=== PATIENT | male | born 1985 | race Caucasian/White ===

== ENCOUNTER 2021-05-19 11:19 | Inpatient (IN) | payer OTHER ==
[2021-05-19 11:48] VITALS: BMI 22.1
[2021-05-19] MEDS ORDERED: ACETAMINOPHEN 325 MG TABLET (FP) PO PRN (13:08)
[2021-05-19] MEDS ORDERED: MAG HYDROX/AL HYDROX/SIMETH 30 ML UNIT-DOSE CUP PO PRN (13:08)
[2021-05-19] MEDS ORDERED: BISMUTH SUBSALICYLATE 524 MG/30 ML PO PRN (13:08)
[2021-05-19] MEDS ORDERED: MAGNESIUM HYDROX 2400MG/30ML ORAL SUSPENSION 30 ML CUP PO PRN (13:08)
[2021-05-19] MEDS ORDERED: MENTHOL/PHENOL 1 EACH UD MM PRN (13:08)
[2021-05-19] MEDS ORDERED: cloNIDine HCL 0.1 MG TABLET PO PRN (13:08)
[2021-05-19] MEDS ORDERED: MAGNESIUM CITRATE 300 ML BOTTLE PO PRN (13:08)
[2021-05-19] MEDS ORDERED: ONDANSETRON *ODT* 4 MG TABLET SL PRN (13:08)
[2021-05-19] MEDS ORDERED: methaDONE HCL 10 MG TABLET (FOR DETOX USE ONLY) PO ONE (13:08)
[2021-05-19] MEDS ORDERED: IBUPROFEN 400 MG TABLET (FP) PO PRN (13:08)
[2021-05-19] MEDS: METHOCARBAMOL 500 MG TABLET PO PRN ×2 (14:05→22:30)
[2021-05-19] MEDS: hydrOXYzine PAMOATE 25 MG CAPSULE (FP) PO SCH ×3 (14:05→22:29)
[2021-05-19] MEDS: PRENATAL VITAMINS W/ FOLIC ACID TABLET (FP) PO SCH (14:07)
[2021-05-19] MEDS: clonazePAM 0.5 MG ODT TABLETS SL PRN (18:01)
[2021-05-19] MEDS: THIAMINE HCL 100 MG TABLET (FP) PO SCH (22:29)
[2021-05-19] MEDS: MELATONIN 5 MG TABLETS PO SCH (22:29)
[2021-05-20] MEDS: hydrOXYzine PAMOATE 25 MG CAPSULE (FP) PO SCH ×5 (05:43→22:08)
[2021-05-20] MEDS ORDERED: methaDONE HCL 10 MG TABLET (FOR DETOX USE ONLY) ONE (09:03)
[2021-05-20] MEDS: PRENATAL VITAMINS W/ FOLIC ACID TABLET (FP) PO SCH (10:22)
[2021-05-20] MEDS: clonazePAM 0.5 MG ODT TABLETS SL PRN ×2 (10:23→22:08)
[2021-05-20 13:13] LABS: HEMOGLOBIN 14.1 GM/dL (11.7-16.9); MCH 30.2 pg (25.7-33.7); MCHC 34.3 g/dl (32.0-35.9); MEAN CELL VOLUME 87.8 fl (80-96); MEAN PLT VOLUME 10.4 fl (7.5-11.1); PLATELET COUNT 183 10^3/uL (134-434); RBC 4.66 M/mm3 (4.00-5.60); RDW 13.2 % (11.9-15.9); WHITE BLOOD COUNT 8.6 K/mm3 (4.0-10.0)
[2021-05-20 13:16] LABS: ALBUMIN 3.9 g/dl (3.4-5.0); CALCIUM 9.4 mg/dL (8.5-10.1)
[2021-05-20 13:17] LABS: BILIRUBIN,TOTAL 0.8 mg/dL (0.2-1); BLOOD UREA NITROGEN 18.8 mg/dL (7-18); TOT PROT 6.9 g/dl (6.4-8.2)
[2021-05-20 13:20] LABS: CREATININE 0.8 mg/dL (0.55-1.3)
[2021-05-20] MEDS: THIAMINE HCL 100 MG TABLET (FP) PO SCH (22:08)
[2021-05-20] MEDS: MELATONIN 5 MG TABLETS PO SCH (22:08)
[2021-05-21] MEDS: METHOCARBAMOL 500 MG TABLET PO PRN (05:59)
[2021-05-21] MEDS: hydrOXYzine PAMOATE 25 MG CAPSULE (FP) PO SCH (06:00)
[2021-05-21] MEDS: NICOTINE 10 MG CARTRIDGE (INHALER) IH PRN ×2 (06:30→10:22)
[2021-05-21] MEDS ORDERED: methaDONE HCL 10 MG TABLET (FOR DETOX USE ONLY) PO ONE (10:00)
[2021-05-21] MEDS: PRENATAL VITAMINS W/ FOLIC ACID TABLET (FP) PO SCH (10:19)
[2021-05-21] MEDS: diazePAM 5 MG TABLET PO PRN ×4 (10:20→23:01)
[2021-05-21] MEDS: ACETAMINOPHEN 325 MG TABLET (FP) PO PRN (19:08)
[2021-05-21] MEDS: MELATONIN 5 MG TABLETS PO SCH (22:19)
[2021-05-21] MEDS: THIAMINE HCL 100 MG TABLET (FP) PO SCH (22:19)
[2021-05-22] MEDS: hydrOXYzine PAMOATE 25 MG CAPSULE (FP) PO PRN ×2 (00:31→22:11)
[2021-05-22] MEDS: METHOCARBAMOL 500 MG TABLET PO PRN ×2 (02:15→22:11)
[2021-05-22] MEDS: ACETAMINOPHEN 325 MG TABLET (FP) PO PRN (02:15)
[2021-05-22] MEDS: diazePAM 5 MG TABLET PO PRN ×4 (03:04→22:10)
[2021-05-22] MEDS ORDERED: methaDONE HCL 10 MG TABLET (FOR DETOX USE ONLY) ONE (08:27)
[2021-05-22] MEDS: PRENATAL VITAMINS W/ FOLIC ACID TABLET (FP) PO SCH (10:08)
[2021-05-22] MEDS: MELATONIN 5 MG TABLETS PO SCH (22:11)
[2021-05-22] MEDS: THIAMINE HCL 100 MG TABLET (FP) PO SCH (22:11)
[2021-05-22] MEDS: NICOTINE 10 MG CARTRIDGE (INHALER) IH PRN (22:39)
[2021-05-23] MEDS: diazePAM 5 MG TABLET PO PRN ×4 (01:59→20:08)
[2021-05-23] MEDS: hydrOXYzine PAMOATE 25 MG CAPSULE (FP) PO PRN ×4 (02:43→20:08)
[2021-05-23] MEDS: METHOCARBAMOL 500 MG TABLET PO PRN ×3 (06:15→23:19)
[2021-05-23] MEDS ORDERED: methaDONE HCL 10 MG TABLET (FOR DETOX USE ONLY) PO ONE (10:00)
[2021-05-23] MEDS: PRENATAL VITAMINS W/ FOLIC ACID TABLET (FP) PO SCH (10:23)
[2021-05-23] MEDS: NICOTINE 10 MG CARTRIDGE (INHALER) IH PRN (20:32)
[2021-05-23] MEDS: MELATONIN 5 MG TABLETS PO SCH (22:19)
[2021-05-23] MEDS ORDERED: MELATONIN 5 MG TABLETS PO SCH (22:44)
[2021-05-23] MEDS: THIAMINE HCL 100 MG TABLET (FP) PO SCH (23:19)
[2021-05-23] MEDS ORDERED: hydrOXYzine PAMOATE 50 MG CAPSULE (FP) PO ONE (23:26)
[2021-05-24] MEDS: diazePAM 5 MG TABLET PO PRN ×2 (00:17→04:34)
[2021-05-24] MEDS: hydrOXYzine PAMOATE 25 MG CAPSULE (FP) PO PRN (05:53)
[2021-05-24 09:35] VITALS: BP 114/62; PULSE 88; TEMP 97.3
[2021-05-24] MEDS: PRENATAL VITAMINS W/ FOLIC ACID TABLET (FP) PO SCH (09:52)
== END 2021-05-24 10:15 | disposition home or self-care (01) | DRG 773 ==
LOC: YASAS 11:19 → Y3N 12:33
PROVIDERS: ADMIT Allergy & Immunology; ATTEND Allergy & Immunology
PROC: HZ2ZZZZ Detoxification Services for Substance Abuse Treatment (ICD-10-PCS; principal; 2021-05-19)
DX: F11.23 Opioid dependence with withdrawal (principal); F10.230 Alcohol dependence with withdrawal, uncomplicated; F12.20 Cannabis dependence, uncomplicated; F17.210 Nicotine dependence, cigarettes, uncomplicated; F19.24 Other psychoactive substance dependence with psychoactive substance-induced mood disorder; F41.9 Anxiety disorder, unspecified; F32.9 Major depressive disorder, single episode, unspecified; Z56.0 Unemployment, unspecified; Z59.0 Homelessness
CPT/HCPCS: 36415; 80053; 85027; 86780; C9803; J0735; Q0162; U0003; U0005